=== PATIENT | male | born 1955 | race Caucasian/White ===

== ENCOUNTER 2018-12-12 17:16 | Emergency (ER) | payer OTHER ==
[~2018-12-12] VITALS: Ht 172.7 cm; Wt 58.6 kg
[2018-12-12 17:24] VITALS: Ht 172.7 cm; Wt 58.6 kg
[2018-12-12] MEDS ORDERED: LORAZEPAM 2 MG INJ IM ONE (18:00)
[2018-12-12] MEDS ORDERED: SOD CHLORIDE 0.9% 1,000 ML IV ONE ×3 (19:30→23:30)
[2018-12-13 00:23] VITALS: BP 92/72; PULSE 61; RESP 14
== END 2018-12-13 00:30 | disposition short-term general hospital (02) ==
LOC: E/R 17:16
DX: S06.5X0A Traumatic subdural hemorrhage without loss of consciousness, initial encounter (principal); I10 Essential (primary) hypertension; R40.2142 Coma scale, eyes open, spontaneous, at arrival to emergency department; R40.2252 Coma scale, best verbal response, oriented, at arrival to emergency department; R40.2362 Coma scale, best motor response, obeys commands, at arrival to emergency department; W05.0XXA Fall from non-moving wheelchair, initial encounter; Y92.89 Other specified places as the place of occurrence of the external cause
CPT/HCPCS: 36415; 70450; 72125; 80048; 85025; 85610; 85730; 93005; 96360; 96361; 96372; 99285; J2060; J7030